=== PATIENT | male | born 1955 | race Caucasian/White ===

== ENCOUNTER 2021-02-21 18:17 | Inpatient (IN) | payer SELFPAY ==
[2021-02-21 18:57] LABS: #Lymphocytes 1.7 thou/uL (1.20-3.40); #Monocytes 0.4 thou/uL (0.11-0.59); #Neutrophils 4.7 thou/uL (1.40-6.50); %Basophils 0.2 % (0.0-1.0); %Eosinophils 0.1 % (0.0-10.0); %Lymphocytes 24.9 % (21.0-51.0); %Monocytes 5.2 % (0.0-10.0); %Neutrophils 69.6 % (42.0-75.0); Mean Corpuscular HGB CONC 33.3 g/dL (32.0-36.0); Mean Corpuscular Hemoglobin 25.9 pg (27.0-31.0); Mean Corpuscular Volume 77.8 fL (78.0-98.0); Mean Platelet Volume 9.1 fL (7.4-10.4); Platelet Count 260 thou/uL (130-400); RBC Distribution Width 18.8 % (11.5-14.5); Red Blood Cell (RBC) Count 5.79 mill/uL (4.70-6.10); White Blood Cell (WBC) Count 6.7 thou/uL (4.8-10.8)
[2021-02-21 19:09] LABS: PTT 28.3 sec (22.9-36.1); Prothrombin Time 13.2 sec (12.0-14.7)
[2021-02-21] MEDS ORDERED: Lorazepam 2 MG/ML VIAL ONE (19:10)
[2021-02-21] MEDS ORDERED: Cefepime 2 GM VIAL ONE (19:13)
[2021-02-21 19:20] LABS: ALT (SGPT) 27 U/L (8-55); AST (SGOT) 35 U/L (5-34); Acetaminophen Less than 6.0 mcg/mL (10.0-30.0); Albumin 4.4 g/dL (3.4-4.8); Alcohol 314 mg/dL (Less than 10); Alkaline Phosphatase 61 U/L (40-110); Anion Gap 25 mmol/L (10-20); BUN (Urea Nitrogen) 13 mg/dL (8.4-25.7); Bilirubin, Total 0.4 mg/dL (0.2-1.2); Calc. Creatinine Clearance 0 mL/min (70-130); Carbon Dioxide 16 mmol/L (23-31); Chloride 106 mmol/L (98-107); Glucose 100 mg/dL (80-115); Lipase 32 U/L (8-78); Potassium 4.5 mmol/L (3.5-5.1); Protein, Total 7.4 g/dL (5.8-8.1); Salicylate Less than 8.0 mg/dL (15.0-30.0); Sodium 142 mmol/L (136-145)
[2021-02-21] MEDS ORDERED: VANCOMYCIN 2 GRAM/400 ML BAG 2 GM in Premix Bag 1 BAG IVPB SCH (19:45)
[2021-02-21] MEDS ORDERED: Multivitamins, Adult 10 ML, Thiamine HCl 100 MG, Folic Acid 1 MG in Dextrose 5 %-0.45 %... IV SCH (21:00)
[2021-02-21] MEDS ORDERED: Ondansetron PF 4 MG/2 ML Vial IVP PRN (22:08)
[2021-02-21] MEDS ORDERED: Ondansetron ODT 4 MG TAB PO PRN (22:08)
[2021-02-21] MEDS ORDERED: Acetaminophen 650 MG Suppository PR PRN (22:08)
[2021-02-21 22:29] LABS: Amphetamine Not Detected (NotDetected); Barbiturates Screen Not Detected (NotDetected); Benzodiazepine Screen Not Detected (NotDetected); Cocaine Metabolite Screen Not Detected (NotDetected); Methadone Not Detected (NotDetected); Methamphetamine Not Detected (NotDetected); Opiate Screen Not Detected (NotDetected); Oxycodone Screen Not Detected (NotDetected); Phencyclidine (PCP) Not Detected (NotDetected); THC/Cannabinoid Screen Not Detected (NotDetected); Tricyclic Screen Not Detected (NotDetected)
[2021-02-21 22:51] LABS: Bacteria/HPF None Seen HPF (None Seen); Bilirubin Negative (Negative); Blood, Urine Negative (Negative); Clarity Clear (Clear); Glucose, Urine (Dipstick) Normal (Negative); Ketone, Urine 60 mg/dL (Negative); Leukocyte Negative Leu/uL (Negative); Nitrite Negative (Negative); Protein, Urine (Dipstick) 30 mg/dL (Neg-Trace); RBC/HPF 0-3 HPF (0-3); Specific Gravity, Urine 1.027 (1.002-1.036); Squamous Epithelial 0-3 HPF (0-3); Urobilinogen Normal mg/dL (Less than 2); WBC/HPF 0-3 HPF (0-3)
[2021-02-21] MEDS: Acetaminophen 325 MG TAB PO PRN (23:28)
[2021-02-22] MEDS ORDERED: Pantoprazole 40 MG VIAL IVP SCH (00:45)
[2021-02-22 02:22] LABS: Lactic Acid 4.9 mmol/L (0.5-2.2)
[2021-02-22 05:56] LABS: #Lymphocytes 0.9 thou/uL (1.20-3.40); #Monocytes 0.8 thou/uL (0.11-0.59); #Neutrophils 4.5 thou/uL (1.40-6.50); %Basophils 0.2 % (0.0-1.0); %Eosinophils 0.4 % (0.0-10.0); %Lymphocytes 15.1 % (21.0-51.0); %Monocytes 12.3 % (0.0-10.0); Hemoglobin 12.4 g/dL (14.0-18.0); Mean Corpuscular HGB CONC 32.2 g/dL (32.0-36.0); Mean Corpuscular Volume 77.7 fL (78.0-98.0); Mean Platelet Volume 8.3 fL (7.4-10.4); Platelet Count 201 thou/uL (130-400); RBC Distribution Width 18.6 % (11.5-14.5); Red Blood Cell (RBC) Count 4.97 mill/uL (4.70-6.10); White Blood Cell (WBC) Count 6.2 thou/uL (4.8-10.8)
[2021-02-22] MEDS ORDERED: Piperacillin/Tazobactam 3.375 GM in Sodium Chloride 0.9% 100 ML IVPB SCH ×3 (06:15→10:00)
[2021-02-22 06:24] LABS: Anion Gap 19 mmol/L (10-20); BUN (Urea Nitrogen) 8 mg/dL (8.4-25.7); Calc. Creatinine Clearance 122 mL/min (70-130); Calcium 8.4 mg/dL (7.8-10.44); Carbon Dioxide 18 mmol/L (23-31); Chloride 107 mmol/L (98-107); Glucose 88 mg/dL (80-115); Sodium 140 mmol/L (136-145)
[2021-02-22] MEDS: Sodium Chloride 0.9% 1,000 ML IV SCH ×3 (06:32→23:37)
[2021-02-22 06:39] LABS: Lactic Acid 4.1 mmol/L (0.5-2.2)
[2021-02-22 06:44] LABS: Free T4 (Free Thyroxine) 1.03 ng/dL (0.70-1.48)
[2021-02-22] MEDS: Pantoprazole 40 MG VIAL IVP SCH (08:19)
[2021-02-22] MEDS: Acetaminophen 325 MG TAB PO PRN (08:19)
[2021-02-22] MEDS: Morphine 4 MG/ML VIAL SLOW IVP PRN ×3 (10:49→20:13)
[2021-02-22 10:53] LABS: Troponin I 0.011 ng/mL (< 0.028)
[2021-02-22] MEDS ORDERED: Lorazepam 2 MG/ML VIAL SLOW IVP PRN (12:31)
[2021-02-22 13:27] LABS: Lactic Acid 1.2 mmol/L (0.5-2.2)
[2021-02-22 14:52] LABS: SARS-CoV-2 PCR by NAA Not Detected (NotDetected)
[2021-02-22] MEDS: Piperacillin/Tazobactam 3.375 GM in Sodium Chloride 0.9% 100 ML IVPB SCH ×2 (15:00→21:12)
[2021-02-22] MEDS: Thiamine 100 MG TAB PO SCH (15:00)
[2021-02-22] MEDS: Folic Acid 1 MG TAB PO SCH (15:00)
[2021-02-22] MEDS ORDERED: cloNIDine 0.1 MG TAB PO PRN (17:56)
[2021-02-23] MEDS: Morphine 4 MG/ML VIAL SLOW IVP PRN ×4 (00:19→18:34)
[2021-02-23] MEDS: Piperacillin/Tazobactam 3.375 GM in Sodium Chloride 0.9% 100 ML IVPB SCH ×3 (05:15→22:12)
[2021-02-23 06:07] LABS: Prothrombin Time 12.8 sec (12.0-14.7)
[2021-02-23 06:23] LABS: ALT (SGPT) 17 U/L (8-55); AST (SGOT) 25 U/L (5-34); Albumin 3.1 g/dL (3.4-4.8); Alkaline Phosphatase 47 U/L (40-110); Bilirubin, Direct 0.4 mg/dL (0.1-0.3); Bilirubin, Total 0.8 mg/dL (0.2-1.2); Protein, Total 5.4 g/dL (5.8-8.1)
[2021-02-23 08:41] LABS: #Eosinphils 0.1 thou/uL (0.0-0.7); #Lymphocytes 0.7 thou/uL (1.20-3.40); #Monocytes 0.3 thou/uL (0.11-0.59); #Neutrophils 2.3 thou/uL (1.40-6.50); %Basophils 0.3 % (0.0-1.0); %Eosinophils 2.9 % (0.0-10.0); %Lymphocytes 21.5 % (21.0-51.0); %Monocytes 8.9 % (0.0-10.0); %Neutrophils 66.5 % (42.0-75.0); Hemoglobin 11.7 g/dL (14.0-18.0); Mean Corpuscular HGB CONC 32.5 g/dL (32.0-36.0); Mean Corpuscular Hemoglobin 25.4 pg (27.0-31.0); Mean Corpuscular Volume 78.3 fL (78.0-98.0); Mean Platelet Volume 9.3 fL (7.4-10.4); Platelet Count 134 thou/uL (130-400); RBC Distribution Width 18.1 % (11.5-14.5); White Blood Cell (WBC) Count 3.5 thou/uL (4.8-10.8)
[2021-02-23] MEDS: Pantoprazole 40 MG VIAL IVP SCH (08:57)
[2021-02-23] MEDS ORDERED: Fentanyl 100 MCG/2 ML VIAL ONE (11:32)
[2021-02-23] MEDS ORDERED: PROPOFOL 200 MG/20 ML VIAL ONE (11:42)
[2021-02-23] MEDS ORDERED: Promethazine HCl 25 MG/ML VIAL IVPB PRN (11:53)
[2021-02-23] MEDS ORDERED: Ondansetron HCl/PF 4 MG/2 ML Vial IVP PRN (11:53)
[2021-02-23] MEDS ORDERED: Promethazine HCl 25 MG/ML VIAL IM PRN (11:53)
[2021-02-23] MEDS: Folic Acid 1 MG TAB PO SCH (14:32)
[2021-02-23] MEDS: Thiamine 100 MG TAB PO SCH (14:32)
[2021-02-23] MEDS: Sodium Chloride 0.9% 1,000 ML IV SCH (16:16)
[2021-02-23 23:19] VITALS: BMI 27.8
[2021-02-24] MEDS: Sodium Chloride 0.9% 1,000 ML IV SCH ×3 (00:38→09:00)
[2021-02-24] MEDS: Acetaminophen 325 MG TAB PO PRN (02:30)
[2021-02-24] MEDS: Piperacillin/Tazobactam 3.375 GM in Sodium Chloride 0.9% 100 ML IVPB SCH (05:32)
[2021-02-24] MEDS: Morphine 4 MG/ML VIAL SLOW IVP PRN ×2 (06:48→11:08)
[2021-02-24] MEDS: Folic Acid 1 MG TAB PO SCH (08:56)
[2021-02-24] MEDS: Thiamine 100 MG TAB PO SCH (08:56)
[2021-02-24 12:14] VITALS: BP 161/92; TEMP 98.7
== END 2021-02-24 14:30 | disposition home or self-care (01) | DRG 917 ==
LOC: ERS 18:17 → INTOOBSV 20:17 → 3SE 20:17 → T4-A 02-23 16:06 → OBSVTOIN 02-23 16:31
PROVIDERS: ADMIT Student in an Organized Health Care Education/Training Program; ATTEND Internal Medicine
PROC: 0DJ08ZZ Inspection of Upper Intestinal Tract, Via Natural or Artificial Opening Endoscopic (ICD-10-PCS; principal; 2021-02-23)
DX: T51.91XA Toxic effect of unspecified alcohol, accidental (unintentional), initial encounter (principal); G92.8 Other toxic encephalopathy; K22.10 Ulcer of esophagus without bleeding; F10.229 Alcohol dependence with intoxication, unspecified; Z20.822 Contact with and (suspected) exposure to COVID-19; Y90.8 Blood alcohol level of 240 mg/100 ml or more; E03.9 Hypothyroidism, unspecified; K70.0 Alcoholic fatty liver; K21.9 Gastro-esophageal reflux disease without esophagitis; K76.0 Fatty (change of) liver, not elsewhere classified; K44.9 Diaphragmatic hernia without obstruction or gangrene; Z90.49 Acquired absence of other specified parts of digestive tract
CPT/HCPCS: 36415; 36416; 51701; 70450; 71045; 72125; 74176; 80048; 80053; 80076; 80306; 80307; 81003; 81015; 82140; 83605; 83690; 84439; 84443; 84481; 84484; 85025; 85610; 85652; 85730; 86850; 86900; 86901; 87040; 87086; 93005; 93010; 96365; 96366; 96374; 96375; 96376; C9113; G0378; J0692; J2060; J2270; J2405; J2543; J2704; J3010; J3370; J3411; J3490; J7042; J7050; Q0162; U0003; U0005